=== PATIENT | female | born 1985 | race African-American/Black ===

== ENCOUNTER 2023-01-05 01:47 | Emergency (ER) | payer SELFPAY ==
[~2023-01-05] VITALS: Ht 162.6 cm; Wt 84.0 kg
[2023-01-05 02:00] VITALS: BP 125/92
[2023-01-05 02:29] LABS: BASOPHILS % 0.9 % (0.0-2.0); EOSINOPHILS % 2.1 % (0.0-5.0); HEMATOCRIT. 43.5 % (36.0-48.0); HEMOGLOBIN. 14.9 g/dL (12.0-16.0); LYMPHOCYTES % 28.3 % (20.0-50.0); MEAN CORPUSCULAR HEMOGLOBIN 30.7 pg (28.0-32.0); MEAN CORPUSCULAR VOLUME 89.5 fL (81.0-99.0); MEAN PLATELET VOLUME 10.7 fl (7.4-10.4); MONOCYTES % 7.3 % (2.0-8.0); NEUTROPHILS % 61.4 % (40.0-76.0); PLATELET 209 x1000/uL (130-400); RED BLOOD CELL COUNT 4.86 mill/uL (4.2-5.4); RED CELL DISTRIBUTION WIDTH 13.6 % (11.6-14.6)
[2023-01-05 02:37] LABS: CHLORIDE 107 mEq/L (98-107)
== END 2023-01-05 06:55 | disposition home or self-care (01) ==
LOC: ER 01:47
DX: R07.2 Precordial pain (principal); R06.02 Shortness of breath; K21.9 Gastro-esophageal reflux disease without esophagitis
CPT/HCPCS: 36415; 71045; 80053; 84484; 85025; 93005; 99285